=== PATIENT | female | born 1980 | race Caucasian/White ===

== ENCOUNTER 2017-09-28 11:29 | Observation (INO) ==
[2017-09-28] MEDS ORDERED: Ipratropium/Albuterol Neb 3 ML ONE ×2 (11:44→14:24)
[2017-09-28] MEDS ORDERED: Albuterol 2.5 MG/3 ML NEBULIZER ONE (11:44)
[2017-09-28] MEDS ORDERED: Albuterol 2.5 MG/3 ML NEBULIZER IH ONE (11:47)
[2017-09-28] MEDS ORDERED: methylPREDNISolone 125 MG/2 ML VIAL IVP ONE (11:48)
[2017-09-28 12:22] LABS: ABG Base Excess -3 mEq/L (-2 to 3); ABG HCO3 20 mEq/L (21-27); ABG Oxygen Saturation 93 % (95-98); ABG PCO2 31 mmHg (35-45); ABG PH 7.42 pH Units (7.32-7.45); ABG PO2 64 mmHg (85-104); ABG TCO2 21 mEq/L (20-26)
--- NOTE | 2017-09-28 12:24 | Emergency Department Note ---
Disposition Clinical Impression: Asthma with exacerbation Qualifiers: Asthma severity: moderate Asthma persistence: persistent Qualified Code(s): J45.41 - Moderate persistent asthma with (acute) exacerbation Disposition: Admitted As Inpatient Condition: Fair Time of Disposition: 16:30 SOB HPI - General Chief Complaint: ED Shortness of Breath/Dyspnea Stated Complaint: NIKOLE Time Seen by Provider: 09/28/17 11:43 Source: patient Mode of arrival: ambulatory Limitations: no limitations Nursing Notes Reviewed: Yes Vital Signs Reviewed: Yes - History of Present Illness 37 year old female presents with a 2 week h/o shortness of breath.positive productive cough. denies fevers/chills. Has been using home nebulizer and antibiotics without improvement Pt Subjective Complaint: shortness of breath, cough Onset (ago): week(s) (2) Context: recent illness Severity: moderate Consistency/Duration: gradually worsening Improves with: nothing Worsens with: exertion Known history of: asthma Associated symptoms: Reports: cough, sputum production. Denies: fever, nausea/ vomiting Treatment prior to arrival: bronchodilator Cough present: Yes Cough Description: Involuntary Cough Frequency: Intermittent Sputum production: Yes Sputum Amount: Moderate Sputum Color: Yellow - Related Data Home oxygen amount: none Home Medications Medication Instructions Recorded Confirmed Albuterol Sulfate [Ventolin Hfa] 18 gm IH 1-2XD PRN 08/26/17 Potassium Chloride [Klor-Con 10] 10 meq PO 08/26/17 Previous Rx's Medication Instructions Recorded Ibuprofen [Motrin] 600 mg PO Q6HR PRN #22 tab 06/15/17 Allergies Allergy/AdvReac Type Severity Reaction Status Date / Time Penicillins AdvReac Nausea Verified 06/15/17 01:27 Sulfa (Sulfonamide AdvReac Nausea Verified 06/15/17 01:27 Antibiotics) All systems ED: reviewed and negative except as stated. Review of Systems: As Per HPI Constitutional: Denies: fever, chills Cardiovascular: Denies: chest pain, palpitations Respiratory: Reports: cough, dyspnea, wheezes Gastrointestinal: Denies: abdominal pain, nausea, vomiting Genitourinary: Denies: urgency Musculoskeletal: Denies: back pain, neck pain Integumentary: Denies: rash Neurological: Denies: headache Hematological/Lymphatic: Denies: easy bleeding, easy bruising Past Medical History - Past Medical History Attestation: Yes The following information was validated with the patient. Source: patient, nursing notes reviewed Medical history: Reports: asthma Surgical history: Reports: other Psychiatric history: Reports: no psych history [employer] history: Reports: no [employer] history - Social History Smoking Status: Current every day smoker Smokeless Tobacco Status: No Alcohol use: Reports: none Drug use: Reports: none Physical Exam - General Limitations: no limitations General appearance: alert, in distress (pt tachycardic and tachypnea) - Eye Eye exam: Present: PERRL, EOMI. Absent: conjunctival injection - ENT ENT exam: normal oropharynx, mucous membranes moist, TM's normal bilaterally - Neck Neck exam: Present: normal inspection, full ROM, lymphadenopathy. Absent: thyromegaly - Chest Chest inspection: Present: normal inspection, symmetric chest wall rise, other ( tachypnea) - Respiratory Respiratory exam: Present: respiratory distress, wheezes - Expanded Respiratory Exam Location: wheezes: Left, Right, Upper, Lower - Cardiovascular Cardiovascular exam: Present: normal rhythm, tachycardia, normal heart sounds - Abdominal Exam Abdominal exam: Present: soft, Non-Tender, normal bowel sounds - Extremities Exam Extremities exam: Present: normal inspection, full ROM. Absent: pedal edema, joint swelling - Neurological Exam Neurological exam: Present: alert, oriented X3 - Psychiatric Psychiatric exam: Present: normal affect - Skin Skin exam: Present: warm, dry, intact, normal color Course Course Narrative: pt given 3 nebulizer tx, solumedrol and levaquin. pt oxygen 90 without oxygen . pt becomes tachycardic 140s and tachypneic with ambulation . Will admit for further treatment. pt accepted by dr. shields Vital Signs O2 Sat by Pulse Oximetry 90 09/28/17 11:35 Temperature 98.5 F 09/28/17 20:49 Pulse Rate 144 09/28/17 20:49 Respiratory Rate 20 09/28/17 20:49 Blood Pressure 115/73 09/28/17 20:49 O2 Sat by Pulse Oximetry 94 09/28/17 20:49 Oxygen Delivery Oxygen Delivery Nasal Cannula Shortness of Breath/Dyspnea - Differential Diagnosis Likely: pneumonia, asthma with exacerbation - Lab Data Lab results reviewed: Yes I reviewed the patient's lab results. Lab results narrative: pts labs within normal limits. rEsults discussed with pt Result diagrams: 09/28/17 12:18 09/28/17 12:18 Lab Results 09/28/17 09/28/17 09/28/17 Range/Units 12:18 12:18 12:18 WBC 11.0 (4.3-11.1) K/mcL RBC 4.72 (3.82-4.97) M/mcL Hgb 14.1 (11.5-15.4) g/dL Hct 41.7 (35.3-44.9) % MCV 88.3 (83.0-100.0) fL MCH 29.9 (28.0-33.3) pg MCHC 33.8 (31.6-35.5) g/dL RDW 13.3 (11.5-14.5) % Plt Count 302 (140-400) K/mcL MPV 9.4 (9.4-12.4) fL Immature Gran % 0.6 (0-4) % Seg Neutrophils % 73.3 % Lymphocytes % 11.8 % Monocytes % 9.0 % Eosinophils % 4.5 % Basophils % 0.8 % Neutrophils # 8.0 (1.6-8.9) K/mcL Lymphocytes # 1.3 (0.6-4.6) K/mcL Monocytes # 1.0 (0.0-1.3) K/mcL Eosinophils # 0.5 (0.0-0.6) K/mcL Basophils # 0.1 (0.0-0.2) K/mcL PT 11.1 (9.4-12.1) Seconds INR 1.0 APTT 38.3 H (26.0-36.0) Seconds D-Dimer 236 (0-500) ng/mLFEU ABG pH (7.32-7.45) pH Units ABG pCO2 (35-45) mmHg ABG pO2 (85-104) mmHg ABG HCO3 (21-27) mEq/L ABG Total CO2 (20-26) mEq/L ABG O2 Saturation (95-98) % ABG Base Excess (-2 to 3) mEq/L Sodium 139 (136-145) mEq/L Potassium 3.7 (3.5-5.1) mEq/L Chloride 108 H (98-107) mEq/L Carbon Dioxide 22 L (23-29) mEq/L BUN 5 L (6-20) mg/dL Creatinine 0.73 (0.60-1.20) mg/dL Est GFR ( Amer) > 60 (> 60) Est GFR (Non-Af Amer) > 60 (> 60) BUN/Creatinine Ratio 7 (6-26) Glucose 103 (70-105) mg/dL Calculated Osmolality 286 (280-300) Lactic Acid (0.5-2.2) mmol/L Calcium 9.6 (8.6-10.3) mg/dL Creatine Kinase 46 (30-223) Units/L Troponin I < 0.03 (< 0.04) ng/mL B-Natriuretic Peptide (Less than 100) pg/mL 09/28/17 09/28/17 09/28/17 Range/Units 12:18 12:18 12:20 WBC (4.3-11.1) K/mcL RBC (3.82-4.97) M/mcL Hgb (11.5-15.4) g/dL Hct (35.3-44.9) % MCV (83.0-100.0) fL MCH (28.0-33.3) pg MCHC (31.6-35.5) g/dL RDW (11.5-14.5) % Plt Count (140-400) K/mcL MPV (9.4-12.4) fL Immature Gran % (0-4) % Seg Neutrophils % % Lymphocytes % % Monocytes % % Eosinophils % % Basophils % % Neutrophils # (1.6-8.9) K/mcL Lymphocytes # (0.6-4.6) K/mcL Monocytes # (0.0-1.3) K/mcL Eosinophils # (0.0-0.6) K/mcL Basophils # (0.0-0.2) K/mcL PT (9.4-12.1) Seconds INR APTT (26.0-36.0) Seconds D-Dimer (0-500) ng/mLFEU ABG pH 7.42 (7.32-7.45) pH Units ABG pCO2 31 L (35-45) mmHg ABG pO2 64 L (85-104) mmHg ABG HCO3 20 L (21-27) mEq/L ABG Total CO2 21 (20-26) mEq/L ABG O2 Saturation 93 L (95-98) % ABG Base Excess -3 L (-2 to 3) mEq/L Sodium (136-145) mEq/L Potassium (3.5-5.1) mEq/L Chloride (98-107) mEq/L Carbon Dioxide (23-29) mEq/L BUN (6-20) mg/dL Creatinine (0.60-1.20) mg/dL Est GFR ( Amer) (> 60) Est GFR (Non-Af Amer) (> 60) BUN/Creatinine Ratio (6-26) Glucose (70-105) mg/dL Calculated Osmolality (280-300) Lactic Acid 1.2 (0.5-2.2) mmol/L Calcium (8.6-10.3) mg/dL Creatine Kinase (30-223) Units/L Troponin I (< 0.04) ng/mL B-Natriuretic Peptide 9 (Less than 100) pg/mL - Radiology Data Radiology results reviewed: Yes I reviewed the patient's radiology results. pts chest xray interpreted by the radiologist as positive for small effusion. results discussed with pt - EKG Data EKG attestation: Yes I reviewed and interpreted this EKG. EKG shows normal: Reports: sinus rhythm Rate: Reports: tachycardia Rhythm: Reports: NSR [place]/QRS: Reports: normal When compared to previous EKG there are: previous EKG unavailable Interpretation: Reports: no acute changes Sepsis Event Note - Evaluation Sepsis Screen: No Definite Risk Current Stage of Sepsis: ruled out Reason for ruling out sepsis: pt does not meet criteria of organ dysfunction Possible Source of Sepsis: pulmonary - Focused Exam Date of Encounter: 09/28/17 Time of Encounter: 11:45 Vital Signs: Vital Signs Temp Pulse Resp BP Pulse Ox 09/28/17 15:40 98.8 F 20 114/72 09/28/17 14:37 140 24 126/79 91 09/28/17 13:15 132 22 112/73 95 09/28/17 11:40 98.0 F 140 28 112/83 90 09/28/17 11:35 90 Respiratory Exam: Present: wheezes Cardiovascular Exam: Present: RRR. Absent: murmur Capillary Refill: < 2 seconds Peripheral Pulse Strength: 4+ bounding Peripheral Pulse Location: Radial Skin Exam: normal turgor - Bedside Monitoring Bedside Ultrasound Performed: No Passive Leg raise/fluid bolus: not performed
[2017-09-28] MEDS ORDERED: Levofloxacin 750 MG/150 ML 750 MG/150 ML BAG IVPB ONE (12:25)
[2017-09-28 12:31] LABS: Basophils # 0.1 K/mcL (0.0-0.2); Basophils % 0.8 %; Eosinophils # 0.5 K/mcL (0.0-0.6); Eosinophils % 4.5 %; Hematocrit 41.7 % (35.3-44.9); Hemoglobin 14.1 g/dL (11.5-15.4); Immature Granulocytes % 0.6 % (0-4); Lymphocytes # 1.3 K/mcL (0.6-4.6); Lymphocytes % 11.8 %; Mean Corpuscular HGB Conc 33.8 g/dL (31.6-35.5); Mean Corpuscular Hemoglobin 29.9 pg (28.0-33.3); Mean Corpuscular Volume 88.3 fL (83.0-100.0); Mean Platelet Volume 9.4 fL (9.4-12.4); Platelet Count 302 K/mcL (140-400); Red Blood Count 4.72 M/mcL (3.82-4.97); Red Cell Distribution Width 13.3 % (11.5-14.5); Segmented Neutrophils % 73.3 %
[2017-09-28] MEDS: 0.9 % Sodium Chloride 1,000 ML IVC SCH ×3 (12:47→17:13)
[2017-09-28 12:50] LABS: BUN/Creatinine Ratio 7 (6-26); Blood Urea Nitrogen 5 mg/dL (6-20); Calcium 9.6 mg/dL (8.6-10.3); Carbon Dioxide 22 mEq/L (23-29); Chloride 108 mEq/L (98-107); Creatine Kinase 46 Units/L (30-223); Glucose 103 mg/dL (70-105); Osmolality,Calculated 286 (280-300); Potassium 3.7 mEq/L (3.5-5.1); Sodium 139 mEq/L (136-145); Troponin I < 0.03 ng/mL (< 0.04); eGFR For African Americans > 60 (> 60); eGFR For Non-African Americans > 60 (> 60)
[2017-09-28 13:05] LABS: Activated Partial Thrombo Time 38.3 Seconds (26.0-36.0)
[2017-09-28 13:06] LABS: Prothrombin Time 11.1 Seconds (9.4-12.1)
[2017-09-28] MEDS ORDERED: Naloxone 0.4 MG/ML INJ IVP PRN (16:14)
[2017-09-28] MEDS ORDERED: Albuterol 2.5 MG/3 ML NEBULIZER IH PRN (16:14)
--- NOTE | 2017-09-28 16:42 | Internal Med History&Physical ---
Date of Encounter: 09/28/17 Time of Encounter: 16:38 Assessment and Plan (1) Asthma Current visit: Yes Status: Acute We will agree with treatment with antibiotics, breathing treatments, IV steroids. Will try to discharge as soon as she is clinically stable because of her daughter's considerations. Qualifiers: Asthma severity: severe Asthma persistence: persistent Asthma complication type: with acute exacerbation Qualified Code(s): J45.51 - Severe persistent asthma with (acute) exacerbation (2) Tobacco abuse Current visit: Yes Status: Acute Have advised she quit smoking and will try a nicotine patch, while here. Internal Medicine - H&P: HPI Chief complaint: Shortness of breath Admitted From: Home Plans for Post Hospital Care: Home History of present illness: Ms. Carias is a 37 year old female who has a 2 week history of dyspnea. She states that she has been coughing for 2 weeks, progressively worse. The cough has been productive occasionally, only, of clear sputum. Occasionally, she will most little bit of yellow tinge but not usually. There has been no hemoptysis. Shortness of breath has worsened. She has a past history of asthma which is worsening as well. She finally came to the emergency room where she was treated with IV steroids, respiratory treatments, fluids, and antibiotics. Because she was persistently hypoxic, she is admitted to observation status. The patient does not want to stay and is already asking about signing out AGAINST MEDICAL ADVICE. She wants to know if she can have prescriptions if she signs out AGAINST MEDICAL ADVICE. This is because she has a daughter who has had surgery and is been found to have severe appendix problems with resultant infection. [facility] [place]. Past medical history is significant only for asthma. Past surgical history is significant for removal of a "genetic defect," uncertain type, when she was about 26 years old. There is been no recurrence or other problem associated. She has an 18 pack-year smoking history and has been smoking about a pack a day until about a week ago. She has been only smoking 2 cigarettes per day, during that time. She denies the use of street drugs, lives with her 3 children and has no significant other. She works at a [employer]. Patient has no complaint of chest discomfort, dyspnea, orthopnea, breathing problems, palpitations, nausea or vomiting, constipation or diarrhea, other changes in bowel habits, heartburn, difficulty with urination, kidney problems or kidney stones, fevers chills or sweats, rash or itching, seizures, headache or lightheadedness, heat or cold intolerance, blood problems or anemia, or other new complaints, except as mentioned above. Review of systems is otherwise negative. Past Med Surg Social Fam HX - Past Medical History Medical history: asthma Psychiatric history: no psych history - Past Surgical History Surgical History: other Additional surgical history: MASS REMOVED FROM LT LUNG - Social History Smoking Status: Current every day smoker Smokeless Tobacco Status: No Alcohol use: none Drug use: none Internal Medicine - H&P: Meds Ibuprofen [Motrin] 600 mg PO Q6HR PRN #22 tab 06/15/17 [Rx] Albuterol Sulfate [Albuterol Inhaler] 08/26/17 [History] Albuterol Sulfate [Proair Hfa] 08/26/17 [History] Albuterol Sulfate [Ventolin Hfa] 08/26/17 [History] Ferrous Sulfate, Dried [Iron] 08/26/17 [History] Gabapentin [Neurontin] 08/26/17 [History] Potassium Chloride [Klor-Con 10] 10 meq PO 08/26/17 [History] Sulfamethoxazole/Trimeth DS [Bactrim DS] 1 each PO BID #20 tablet 08/26/17 [Rx] predniSONE [PredniSONE] 60 mg PO DAILY #15 tablet 08/26/17 [Rx] 3 Allergy/AdvReac Type Severity Reaction Status Date / Time Penicillins AdvReac Nausea Verified 06/15/17 01:27 Sulfa (Sulfonamide AdvReac Nausea Verified 06/15/17 01:27 Antibiotics) All Systems PM: A 10-system review of systems was performed and is negative for pertinent findings except as documented above in the HPI. - Constitutional Vitals: Temp Pulse Resp BP Pulse Ox 99.5 F 133 20 115/75 92 09/28/17 16:26 09/28/17 16:26 09/28/17 16:26 09/28/17 16:26 09/28/17 16:26 Exam: Examination: (Except as mentioned above): General: In no apparent distress, alert and oriented 3. Head: Atraumatic and normocephalic. Eyes: Extraocular muscles are intact, pupils equal round and reactive to light and accommodation. Sclerae anicteric. Ears: External ears are normal to inspection and hearing is grossly normal. Nose: Patent without lesion noted. Mouth: No intraoral lesions seen. Dentition is unremarkable. Neck: Supple with trachea midline. There is no thyromegaly or adenopathy and carotids are 2+ without bruit heard. Respiratory: No use of accessory muscles. Lungs are significant for diffuse wheezing. There are no rales or other rhonchi. No signs of egophony or fremitus. Normal airflow. Cardiovascular: Regular rate and rhythm without murmur appreciated. Abdomen: Bowel sounds are normal. No hepatosplenomegaly masses or tenderness. Obese and therefore difficult to palpate deeply. Extremities: No cyanosis clubbing or edema. Neurological: A and O 3. Cranial nerves II through XII are intact. No focal deficits and no abnormal movements or postures. Skin: Warm and non-diaphoretic with no lesions noted. She has multiple tattoos of her upper extremities. Breasts, pelvic and rectal: Not examined. Internal Med - H&P Results - Labs CBC & Chem 7: 09/28/17 12:18 09/28/17 12:18
[2017-09-28] MEDS: Ipratropium/Albuterol Neb 3 ML IH SCH ×2 (16:48→20:25)
[2017-09-28] MEDS: Nicotine 21 MG PATCH.TD24 TD SCH (17:01)
[2017-09-28] MEDS: Ibuprofen 400 MG TABLET PO PRN (17:33)
[2017-09-28] MEDS: Albuterol 2.5 MG/3 ML NEBULIZER IH PRN ×3 (20:00→23:19)
[2017-09-28] MEDS: methylPREDNISolone 125 MG/2 ML VIAL IVP SCH (20:27)
[2017-09-28] MEDS ORDERED: MethylPREDNISolone 40 MG/ML VIAL IVP SCH (21:00)
[2017-09-28] MEDS: Acetaminophen 325 MG TABLET PO PRN (21:07)
[2017-09-29] MEDS: Albuterol 2.5 MG/3 ML NEBULIZER IH PRN ×4 (00:27→08:16)
[2017-09-29] MEDS: Ibuprofen 400 MG TABLET PO PRN (00:49)
[2017-09-29] MEDS: 0.9 % Sodium Chloride 1,000 ML IVC SCH (00:50)
[2017-09-29] MEDS: Acetaminophen 325 MG TABLET PO PRN (05:12)
[2017-09-29] MEDS: methylPREDNISolone 125 MG/2 ML VIAL IVP SCH (05:12)
[2017-09-29 05:55] LABS: Basophils % 0.1 %; Hematocrit 34.9 % (35.3-44.9); Hemoglobin 11.6 g/dL (11.5-15.4); Immature Granulocytes % 0.5 % (0-4); Lymphocytes # 0.8 K/mcL (0.6-4.6); Lymphocytes % 5.7 %; Mean Corpuscular HGB Conc 33.2 g/dL (31.6-35.5); Mean Corpuscular Hemoglobin 29.4 pg (28.0-33.3); Mean Corpuscular Volume 88.4 fL (83.0-100.0); Mean Platelet Volume 9.5 fL (9.4-12.4); Monocytes # 0.6 K/mcL (0.0-1.3); Monocytes % 4.4 %; Neutrophils # 11.7 K/mcL (1.6-8.9); Platelet Count 272 K/mcL (140-400); Red Blood Count 3.95 M/mcL (3.82-4.97); Red Cell Distribution Width 13.5 % (11.5-14.5); Segmented Neutrophils % 89.3 %
[2017-09-29 06:09] LABS: Alanine Aminotransferase 7 Units/L (7-52); Albumin 3.7 g/dL (3.5-5.7); Albumin/Globulin Ratio 1.6 (1.1-2.2); Alkaline Phosphatase 66 Units/L (34-104); Aspartate Amino Transferase 9 Units/L (13-39); BUN/Creatinine Ratio 9 (6-26); Bilirubin,Total 0.3 mg/dL (0.3-1.0); Blood Urea Nitrogen 6 mg/dL (6-20); Calcium 8.8 mg/dL (8.6-10.3); Carbon Dioxide 18 mEq/L (23-29); Chloride 111 mEq/L (98-107); Globulin 2.3 g/dL (2.4-3.5); Glucose 192 mg/dL (70-105); Osmolality,Calculated 291 (280-300); Potassium 3.7 mEq/L (3.5-5.1); Sodium 139 mEq/L (136-145); eGFR For African Americans > 60 (> 60); eGFR For Non-African Americans > 60 (> 60)
[2017-09-29] MEDS: Nicotine 21 MG PATCH.TD24 TD SCH (08:26)
[2017-09-29] MEDS ORDERED: Levofloxacin 750 MG/150 ML 750 MG/150 ML BAG IVPB SCH (09:00)
[2017-09-29] MEDS: Ipratropium/Albuterol Neb 3 ML IH SCH (09:21)
--- NOTE | 2017-09-29 10:44 | Discharge Summary ---
Date of Encounter: 09/29/17 Time of Encounter: 10:42 - Discharge Diagnosis (1) Asthma with exacerbation Priority: Primary Status: Acute Comments: Patient minute for exacerbation of her asthma. Patient states that overnight her respiratory status has improved greatly and denies any dyspnea at rest. Patient denies any audible wheezing, but continues to have slight expiratory wheeze heard to upper [place]. No hypoxia with saturation at 91% on room air. Patient plan to have prescription for antibiotic and prednisone burst upon discharge with instructions to follow-up with PCP in one week. Qualifiers: Asthma severity: moderate Asthma persistence: persistent Qualified Code(s ): J45.41 - Moderate persistent asthma with (acute) exacerbation (2) Tobacco abuse Priority: Secondary Status: Chronic Comments: Patient given instruction on tobacco cessation. Patient denies any current tobacco use, stating that she quit several weeks ago. Known long history of tobacco use prior to this admission Hospital course: Ms. Carias is a 37 year old female, who has a 2 week history of dyspnea. She states that she has had a productive cough for 2 weeks, which progressively worsened. Occasionally, she will most little bit of yellow tinge but not usually. Denies hemoptysis. She states that her dyspnea had worsened and she became anxious and then eventually came into ED for treatment. Patient states that she has had reoccurring bronchitis over the past year and feels that her asthma slowly worsening. She finally came to the emergency room where she was treated with IV steroids, respiratory treatments, fluids, and antibiotics. Because she was persistently hypoxic, she was admitted. Patient given a dose of Levaquin today. Patient currently has a daughter that is being treated at [facility] for the past week and patient is requesting to be discharged to be with her daughter. Her pulmonary status has improved overnight. Respiratory effort appears relaxed while at rest. Noted slight expiratory wheeze to upper [place]. No hypoxia with saturation of 91% while on room air. Plan is for patient to follow-up with PCP in one week and be discharged with a prednisone burst and antibiotics. Discharge discussed with: patient Time spent discussing smoking cessation with patient: 3 to 10 minutes - Time Spent with Patient Total time spent providing and/or coordinating discharge services: Less than 30 minutes - Discharge Medications Home Medications: Ibuprofen [Motrin] 600 mg PO Q6HR PRN #22 tab 06/15/17 [Rx] Albuterol Sulfate [Ventolin Hfa] 18 gm IH 1-2XD PRN 08/26/17 [History] Potassium Chloride [Klor-Con 10] 10 meq PO 08/26/17 [History] Allergies/Adverse Reactions: 3 Allergy/AdvReac Type Severity Reaction Status Date / Time Penicillins AdvReac Nausea Verified 06/15/17 01:27 Sulfa (Sulfonamide AdvReac Nausea Verified 06/15/17 01:27 Antibiotics) Date of admission: 09/28/17 15:55 Primary care physician: PCP NONE Consults: 09/28/17 18:01 Consult to A Operator [CONS] Routine Reason for SW Consult: potential for o2 at d/c, no insurance. Discharging clinician: Ruperto Jaramillo Anticipated date of discharge: 09/29/17 - Constitutional Vitals: Temp Pulse Resp BP Pulse Ox 98.6 F 113 18 99/65 96 09/29/17 07:18 09/29/17 07:18 09/29/17 07:18 09/29/17 07:18 09/29/17 07:18 General appearance: Present: A&O X 3, pleasant, no acute distress - Head Head exam: Present: atraumatic, normocephalic - Eye Eye exam: Present: PERRL, conjuntiva pink, sclera anicteric Pupils: Present: PERRL - Neck Neck exam general surgery: Present: supple, trachea midline. Absent: lymphadenopathy - Respiratory Respiratory exam: Present: CTAB, wheezes. Absent: accessory muscle use, rales, rhonchi Additional comments: Noted slight expiratory wheeze heard to [place], but otherwise lungs are clear throughout. Respiratory effort appears relaxed while at rest. Oximetry shows 91% on room air. No use of accessory muscles noted. - Cardiovascular Cardiovascular exam: Present: RRR, +S1, +S2. Absent: diastolic murmur, gallop, rubs, systolic murmur - GI/Abdominal GI/Abdominal exam: Present: normal bowel sounds, soft, no peritoneal signs. Absent: distended, tenderness - Extremities Exam Extremities exam: Present: warm, radial pulses palpable and symmetrical. Absent : calf tenderness, cyanotic, pedal edema - Neurological Exam Neurological exam: Present: CN II-XII intact, oriented X3, no focal deficits. Absent: pronater drift, facial droop, speech deficit - Skin Skin exam: Present: dry, intact - Patient Status Disposition: Home, Self-Care Condition: Fair Functional capacity at discharge: independent ambulation Overall status at discharge: patient is progressing back to baseline - Discharge Instructions Follow Up With: Tila Bush CNP [Advanced Practice Nurse] - 10/02/17 2:20 pm (follow up appointment) NONE,PCP [Primary Care Provider] - - Diet and Activity Activity: increase activity as tolerated Diet: advance to your usual diet - VTE Documentation of Mechanical Device: Graduated compression elastic hosiery
[2017-09-29 12:25] VITALS: BP 103/66
--- NOTE | 2017-09-29 18:22 | Electrocardiograph Report ---
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
== END 2017-09-29 12:58 | disposition home or self-care (01) ==
LOC: INPGRE 11:29 → EMEROOGRE 11:29 → INPGRE 16:05